=== PATIENT | female | born 1985 | race Two or more races ===

== ENCOUNTER 2018-10-02 10:41 | Emergency (ER) | payer BC, MEDICAID, OTHER ==
[~2018-10-02] VITALS: Ht 162.6 cm; Wt 60.3 kg
[2018-10-02 11:15] VITALS: BP 139/92
[2018-10-02] MEDS ORDERED: KETOROLAC TROMETH 60MG/2ML VIAL IM ONE (12:45)
== END 2018-10-02 13:10 | disposition home or self-care (01) ==
LOC: ER 10:41
DX: M54.42 Lumbago with sciatica, left side (principal)
CPT/HCPCS: 96372; 99283; J1885

== ENCOUNTER 2019-03-01 15:37 | Emergency (ER) | payer MEDICAID ==
[~2019-03-01] VITALS: Ht 162.6 cm; Wt 59.0 kg
[2019-03-01 19:15] VITALS: BP 129/86
[2019-03-01] MEDS ORDERED: KETOROLAC TROMETH 60MG/2ML VIAL IM ONE (19:15)
== END 2019-03-01 19:40 | disposition home or self-care (01) ==
LOC: ER 15:37
DX: M54.16 Radiculopathy, lumbar region (principal); M62.838 Other muscle spasm; M54.42 Lumbago with sciatica, left side
CPT/HCPCS: 72100; 96372; 99283; J1885